=== PATIENT | female | born 1965 | race Asian ===

== ENCOUNTER 2017-03-01 02:42 | Emergency (ER) | payer OTHER ==
--- NOTE | ~2017-03-01 | CR172 ---
[facility] A Service of [facility] RADIOLOGY TEXT RESULTS PATIENT: ANDREA BECKMAN LOCATION: CFTX : 63 UNIT #: [id number] AGE: [address]: Rohan Riley SEX: F ORDER DR: [id number] [facility] [address] [facility]. [address] [id number] E MR#: [id number] Acc #: [id number] NAME: ANDREA BECKMAN : 1965 SEX: F STUDY DATE/TIME: 03/01/2017 2:26 UNIT: CFTX ROOM: STUDY DESCRIPTION: CR Knee 3 Views Lt Attending Physician: Rohan Riley P.A.-C. Ordering Physician: Ed Reuben Johnson M.D. Primary Care Physician: Primary Care Physician No MEDICAL IMAGING REPORT This report is preliminary unless electronic signature is present EXAM Left knee series. INDICATION Left knee pain after a fall today. PROCEDURE 4 views of the left knee. COMPARISON None. FINDINGS No acute fracture, dislocation or joint effusion. IMPRESSION No acute findings. Dictated by... David Garza M.D. THIS IS AN ELECTRONICALLY VERIFIED REPORT David Garza M.D. at 03/05/2017 7:30 AM THEO/isabella TD: 03/01/2017 04:56 JOB #: [id number] MEDICAL IMAGING REPORT Page 1 of 1 COPY
--- NOTE | ~2017-03-01 | CR282 ---
[facility] A Service of [facility] RADIOLOGY TEXT RESULTS PATIENT: ANDREA BECKMAN LOCATION: CFTX : 63 UNIT #: [id number] AGE: [address]: Rohan Riley SEX: F ORDER DR: [id number] [facility] [address] [place], [place] [address] [id number] E MR#: [id number] Acc #: [id number] NAME: ANDREA BECKMAN : 1965 SEX: F STUDY DATE/TIME: 03/01/2017 2:24 UNIT: [facility] ROOM: STUDY DESCRIPTION: CR Wrist Min 3 View Rt Attending Physician: Rohan Riley P.A.-C. Ordering Physician: Ed Reuben Johnson M.D. Primary Care Physician: Primary Care Physician No MEDICAL IMAGING REPORT This report is preliminary unless electronic signature is present EXAM Right wrist series. INDICATION Right wrist pain after a fall today. PROCEDURE 3 views right wrist. COMPARISON None. FINDINGS No acute fracture or dislocation. IMPRESSION No acute findings. Dictated by... David Garza M.D. THIS IS AN ELECTRONICALLY VERIFIED REPORT David Garza M.D. at 03/05/2017 7:30 AM THEO/isabella TD: 03/01/2017 04:55 JOB #: [id number] MEDICAL IMAGING REPORT Page 1 of 1 COPY
== END 2017-03-01 04:00 | disposition home or self-care (01) ==
LOC: CFTX 02:42
DX: S63.501A Unspecified sprain of right wrist, initial encounter (principal); S80.02XA Contusion of left knee, initial encounter; V49.50XA Passenger injured in collision with unspecified motor vehicles in traffic accident, initial encounter
CPT/HCPCS: 73110; 73562; 99284